=== PATIENT | male | born 1970 | race African-American/Black ===

== ENCOUNTER 2019-05-27 14:50 | Emergency (ER) | payer BC ==
[2019-05-27 14:56] VITALS: BP 145/92
--- OUTSIDE RECORDS SUMMARY | 2019-05-27 15:30 | XMS REPORT | Continuity of Care Document ---
:1970 External Reference #:[id number] Author Name Jesus Alberto Diane M.D. Address [address] [place] [address] Care Team Providers Name Role Phone Mansoor Bernal M.D. - Internal Care Team Information Bottling Supervisor Medicine Estelita Sharif MD - Internal Medicine Care Team Information Bottling Supervisor [phone] Hao Connor M.D. - Endocrinology, Care Team Information Bottling Supervisor Diabetes & Metabolism Problems Active Problems Provider Date Enlarged prostate Onset: Type 2 diabetes mellitus Onset: Essential hypertension Onset: Conjunctival pigmentation Jesus Alberto Diane M.D. Onset: 05/20/2018 Nuclear senile cataract Jesus Alberto Diane M.D. Onset: 04/21/2017 Regular astigmatism Tiffany Whipple O.D. Onset: 06/08/2015 Myopia Tiffany Whipple O.D. Onset: 06/08/2015 Presbyopia Tiffany Whipple O.D. Onset: 06/08/2015 Social History Type Date Description Comments Sex Unknown ETOH Use Denies alcohol use Tobacco Use Start: Unknown Patient has never smoked Recreational Drug Use Denies Drug Use Smoking Status Reviewed: 05/24/19 Patient has never smoked Allergies, Adverse Reactions, Alerts Active Allergies Reaction Severity Comments Date Ramipril 04/21/2017 Inactive Allergies NKDA 06/08/2015 Medications Active Medications SIG Qnty Indications Ordering Date Provider Fish Oil Tiffany Horn 600mg Capsules Tiffanie Whipple 6 Tamsulosin HCL Unknown 0.4mg Capsules 0 Vitamin D3 every day Unknown 1000Unit Tablets 0 [place] 3 1 by mouth every day Unknown 1000mg Capsules 0 Losartan Potassium Unknown 25mg Tablets 0 Omeprazole Unknown 10mg Capsules DR 0 Acidophilus Unknown Capsules 0 Iron (Ferrous Gluconate) Unknown 0 256(28Fe) mg Tablets Lovastatin Take 1 Tablet By Unknown 20mg Tablets Mouth AT Bedtime 0 Sertraline HCL Take 1 Tablet By Unknown 25mg Tablets Mouth Every Morning 0 Trulicity Inject The Contents Unknown 0.75mg/0.5ML Solution Of 1 Syringe 0 Pen-Inject Subcutaneously (Under The Skin) Once Weekly For 1 Month Hydrochlorothiazide Take 1 Tablet By Unknown 12.5mg Mouth Every Day 0 Tablets Rosuvastatin Calcium Take 1 Tablet By Unknown 20mg Mouth Every Day 0 Tablets Immunizations Description No Information Available Vital Signs Description No Information Available Results Description No Information Available Procedures Description No Information Available Medical Devices Description No Information Available Encounters Description No Information Available Assessments Date Code Description Provider 05/24/2019 E11.9 Type 2 diabetes mellitus without Jesus Alberto Diane M.D. complications 05/24/2019 H11.133 Conjunctival pigmentations, bilateral Jesus Alberto Diane M.D. 05/24/2019 H25.13 Age-related nuclear cataract, bilateral Jesus Alberto Diane M.D. Plan of Treatment 05/24/2019 - Jesus Alberto Diane M.D.E11.9 Type 2 diabetes mellitus without complicationsComments:Smoking can increase the risk of developing or worsening any eye related disease, as well as affect your overall health. If you are a smoker, we strongly recommend that you quit.If you are not a smoker, we strongly recommend that you do not start. You have diabetes. I do not detect any changes in both of your retinas from diabetes at this time. Proper control of your diabetes is important for the health of your eyes. Changes in your eyes from diabetes can happen without symptoms, so it is important that you have your eyes examined.Follow up:1 Year Follow Up DFE/DM Exam You can expect to have your eyes dilated at your next visit. If Dr. Diane orders any additional testing, it may require extra time. We recommend that you bring sunglasses, as dilation drops often make you light sensitive until they wear off. We always recommend you bring someone to drive you home if you are uncomfortable driving with your eyes dilated. If you have anyquestions before your next visit, feel free to call our office at .H11.133 Conjunctival pigmentations, bottqcivmH73.13 Age-related nuclear cataract, bilateralComments:You have been diagnosed with cataracts. If you are happy with your vision as it is now, then we willsee you at your next scheduled appointment. Functional Status Description No Information Available Mental Status Description No Information Available Referrals Description No Information Available
--- OUTSIDE RECORDS SUMMARY | 2019-05-27 15:30 | XMS REPORT | Continuity of Care Document ---
:1970 External Reference #:[id number] Author Name Saima Cochran DNP, RN, [facility] (transmitted by agent of provider Mariangel Harrsi) Address [address], [address] [place] [address] Care Team Providers Name Role Phone Tommy Pat M.D. - Hematology & Care Team Information Lathe Setup Operator Oncology Kim Juarez MD - Pulmonary Care Team Information Lathe Setup Operator Disease Estelita Sharif M.D. - Family Medicine Care Team Information Lathe Setup Operator Problems Active Problems Provider Date Type 2 diabetes mellitus Timothy Bernal M.D.,FACP Onset: 11/10/2016 Anemia Timothy Bernal M.D.,FACP Onset: 11/10/2016 Benign prostatic hypertrophy without Timothy Bernal M.D.,FACP Onset: outflow obstruction Gastroesophageal reflux disease Timothy Bernal M.D.,FACP Onset: 2016 Essential hypertension Timothy Bernal M.D.,FACP Onset: 11/10/2016 Vascular ectasia of small intestine Timothy Bernal M.D.,FACP Onset: 04/29 Note: chronic slow GI bleed Obstructive sleep apnea of adult Timothy Bernal M.D.,FACP Onset: 2017 Note: moderate Social History Type Date Description Comments Sex Unknown Tobacco Use Start: Unknown Never Smoked Cigarettes Smoking Status Reviewed: 05/03/19 Never Smoked Cigarettes ETOH Use 11/20/2016 Denies alcohol use Tobacco Use Start: Unknown Patient has never smoked Recreational Drug Use Denies Drug Use Exercise Type/Frequency Exercises sporadically Exercise Type/Frequency Bikes sporadically Exercise Type/Frequency Walks sporadically Allergies, Adverse Reactions, Alerts Active Allergies Reaction Severity Comments Date Ramipril 11/10/2016 Metformin GI distress, including ER version 11/10/2016 Byjames severe nausea 10/08/2017 Medications Active Medications SIG Qnty Indications Ordering Date Provider Lovastatin take 1 tablet at 90tabs E11.649 [facility] Rodolfo, 20mg Tablets bedtime MD Kiser Hydrochlorothiazide 1 by mouth every 90tabs I10 Any Reynolds, 12.5mg day MD Kiser Tablets Pen [place] 09/09" use one pen 30units E11.649 Estelita Sharif, 30G X 8 mm needle daily MD Kiser Misc Sertraline HCL 1 by mouth every 90tabs F41.9 Estelita Sharif, 25mg Tablets day MD Felipe Victoza inject 1.2 mg 9ml E11.9 [facility] Rodolfo, 18mg/3ML Solution daily MD Felipe Pen-Inject Mandibular Advancement fabricate oral 1units Saima Device appliance VANESSA Cochran, 8 Device /mandibular RN, [facility] HUNTER-BC advancement device for sleep apnea with needed adjustments. Moderate apnea g47.33 Losartan Potassium 1 by mouth every 90tabs I10 Estelita Sharif, 50mg Tablets day 8 Ferrous Gluconate 1 by mouth every 90tabs Estelita Sharif, 324(37.5Fe) day 8 mg Tablets Onetouch Ultra Blue test up to four 300units E11.9 Timothy Jiménez Strips times a day or Johan Bernal as directed Esmer,FACHu Omeprazole take 1 capsule 30caps K21.9 Estelita Abdallante, 20mg Capsules DR by mouth every MD 7 day Vitamin D-3 1 by mouth every Unknown 1000Unit Capsules day 0 Fish Oil 1 by mouth twice Unknown 500mg Capsules a day(pt is now 0 taking lovaza) Acidophilus Probiotic daily Unknown Tablets 0 Tamsulosin HCL 2 by mouth every Unknown 00/00/000 0.4mg Capsules day 0 Immunizations CPT Code Status Date Vaccine Reaction Lot # 65561 Given 02/18/2018 Pneumonia Vaccine no immediate reaction [id number] noted [id number] Given 02/18/2018 Influenza Virus Vaccine, no immediate reaction [id number] Quadrivalent, Split, noted Preservative Free 32396 Given 05/28/2017 Influenza Virus Vaccine, [id number] Quadrivalent, Split, Preservative Free [id number] Ordered 06/25/2012 Tetanus And Diptheria (Td) For Adult Use Preservative Free Vital Signs Date Vital Result Comment 05/03/2019 2:44pm Height 72 inches 6'0" Weight 268.00 lb Heart Rate 83 /min BP Systolic 136 mmHg BP Diastolic 78 mmHg O2 % BldC Oximetry 93 % BMI (Body Mass Index) 36.3 kg/m2 03/10/2019 3:35pm Height 72 inches 6'0" Weight 273.00 lb Heart Rate 80 /min BP Systolic Sitting 143 mmHg BP Diastolic Sitting 90 mmHg Body Temperature 98.5 F O2 % BldC Oximetry 96 % BMI (Body Mass Index) 37.0 kg/m2 Results Test Acquired Date Facility Test Result H/L Range Note Comp Metabolic 03/12/2019 [facility] Sodium 142 mmol/L Normal 135-145 Panel [address] [place] [address] [phone] Potassium 3.6 mmol/L Normal 3.5-5.0 Chloride 102 mmol/L Normal 101-111 Co2 Carbon Dioxide 33 mmol/L High 22-32 Anion Gap 7 mmol/L Normal 2-11 Glucose 176 mg/dL High 70-100 Blood Urea Nitrogen 11 mg/dL Normal 6-24 Creatinine 0.76 mg/dL Normal 0.67-1.17 BUN/Creatinine Ratio 14.5 Normal 8-20 Calcium 9.5 mg/dL Normal 8.6-10.3 Total Protein 7.6 g/dL Normal 6.4-8.9 Albumin 4.3 g/dL Normal 3.2-5.2 Globulin 3.3 g/dL Normal 2-4 Albumin/Globulin Ratio 1.3 Normal 1-3 Total Bilirubin 0.80 mg/dL Normal 0.2-1.0 Alkaline Phosphatase 134 U/L High 34-104 Alt 20 U/L Normal 7-52 Ast 17 U/L Normal 13-39 Egfr Non- 109.0 >60 Egfr 131.9 >60 1 Lipid Profile 03/12/2019 [facility] Triglycerides 145 mg/dL 2 (Trig/Chol/HDL) [address] [place] [address] [phone] Cholesterol 203 mg/dL 3 HDL Cholesterol 26.2 mg/dL 4 LDL Cholesterol 148 mg/dL 5 CBC Auto 03/12/2019 [facility] White Blood 10.7 10^3/uL Normal 3.5-10.[address] [place] [address] [phone] Red Blood Count 4.56 10^6/uL Normal 4.18-5.48 Hemoglobin 13.4 g/dL Low 14.0-18.0 Hematocrit 41 % Low 42-52 Mean Corpuscular Volume 90 fL Normal 80-94 Mean Corpuscular Hemoglobin 29 pg Normal 27-31 Mean Corpuscular HGB Conc 33 g/dL Normal 31-36 Red Cell Distribution Width 13 % Normal 10-15 Platelet Count 335 10^3/uL Normal 150-450 Mean Platelet Volume 8.6 fL Normal 7.4-10.4 Abs Neutrophils 7.5 10^3/uL Normal 1.5-7.7 Abs Lymphocytes 2.3 10^3/uL Normal 1.0-4.8 Abs Monocytes 0.7 10^3/uL Normal 0-0.8 Abs Eosinophils 0.1 10^3/uL Normal 0-0.6 Abs Basophils 0.0 10^3/uL Normal 0-0.2 Abs Nucleated RBC 0.0 10^3/uL Granulocyte % 70.1 % Lymphocyte % 21.6 % Monocyte % 6.9 % Eosinophil % 1.1 % Basophil % 0.3 % Nucleated Red Blood Cells % 0.0 Urine Microalbumin 03/10/2019 [facility] Ur Microalbumin 47.6 mg /L Random [address] (mg/L) [place] [address] [phone] Urine Creatinine 421.49 mg/dL Urine Microalbumin/Creatinine 11.2 Normal <31 Laboratory test finding 03/10/2019 [facility] In House Hemoglobin A1c 6.3 5-7 1 Because ethnic data is not always readily available, this report includes an eGFR for both -Americans and non- Americans. The National Kidney Disease Education Program (NKDEP) does not endorse the use of the MDRD equation for patients that are not between the ages of 18 and 70, are , have extremes of body size, muscle mass, or nutritional status, or are non- or non-. According to the National Kidney Foundation, irrespective of diagnosis, the stage of the disease is based on the level of kidney function: Stage Description GFR(mL/min/1.73 m(2)) 1 Kidney damage with normal or decreased GFR 90 2 Kidney damage with mild decrease in GFR 60-89 3 Moderate decrease in GFR 30-59 4 Severe decrease in GFR 15-29 5 Kidney failure <15 (or dialysis) 2 Desirable: <150 Borderline High: 150-199 High: 200-499 Very High: >500 3 Desirable: <200 Borderline High: 200-239 High: >239 4 Low: <40 Desirable: 40-60 High: >60 5 Desirable: <100 Near Optimal: 100-129 Borderline High: 130-159 High: 160-189 Very High: >189 Procedures Date Code Description Status 05/20/2018 654068742 Diabetic Retinal Eye Exam Completed 04/21/2017 [id number] Diabetic Retinal Eye Exam Completed 06/26/2016 [id number] Colonoscopy Completed Medical Devices Description No Information Available Encounters Type Date Location Provider Dx Diagnosis Office Visit 03/10/2019 [facility] Internal Any Reynolds MD E11.9 Type 2 diabetes 3:40p Medicine - Ccmob mellitus without complications I10 Essential (primary) hypertension D64.9 Anemia, unspecified H61.21 Impacted cerumen, right ear Assessments Date Code Description Provider 05/03/2019 G47.33 Obstructive sleep apnea (adult) Saima Cochran DNP, RN, (pediatric) [facility] 03/10/2019 E11.9 Type 2 diabetes mellitus without Any Reynolds MD complications 03/10/2019 I10 Essential (primary) hypertension Any Reynolds MD 03/10/2019 D64.9 Anemia, unspecified Any Reynolds MD 03/10/2019 H61.21 Impacted cerumen, right ear Any Reynolds MD Plan of Treatment Future Appointment(s):06/15/2019 3:00 pm - Saima Cochran DNP, RN, [facility] at [facility]06/09/2019 3:40 pm - Any Reynolds MD at [facility] Internal Medicine - [facility]05/03/2019 - Saima Cochran DNP, RN, [facility]- BCG47.33 Obstructive sleep apnea (adult) (pediatric)Follow up:6 weeksRecommendations:Sleep apnea to start PAP at 5-15 cm Review of sleep study in detail. Review of risks of untreated sleep apnea including cardiovascular events: rhythm irregularities, heart attack, stroke; gastro esophageal reflux disease (GERD); diabetes; anxiety, depression; high blood pressure; accidents (machinery and automobile) Recommendation for PAP other treatment modalities NON-PAP including oral appliance/mandibular advancement device, positional strategies , and surgery discussed. Referral for PAP device to be sent to [facility] phone: [phone] Equipment appointment will take about 45 minutes, the DME provider will call you within 5 days to set you up for the device. If you do not hear from them call the Sleep Center. The mask will have a 30-day guarantee, if you have mask problems call the DME provider to have a fitting for a different mask. Need distilled water for humidifier CPAP mask and tubing Cleaning Wipe off mask daily (baby wipe-no scent , or warm water) Clean mask, tubing, filter, and water chamber weekly in mild no scent dish soap and water. Hang to dry. If you have problems with the air pressure call the sleep center and speak to a nurse. If you have any further questions, please call the [facility] at [phone]. If you have any sleepiness while driving you MUST avoid operating a vehicle or machinery. Functional Status Description No Information Available Mental Status Description No Information Available Referrals Description No Information Available
--- OUTSIDE RECORDS SUMMARY | 2019-05-27 15:30 | XMS REPORT | Continuity of Care Document ---
:1970 External Reference #:[id number] Author Name Ish Connor MD (transmitted by agent of provider Ursula Chinchilla) Address [address] [place] [address] Care Team Providers Name Role Phone Tommy Pat M.D. - Hematology & Care Team Information Carbon Brush Maker [phone] Oncology Kim Juarez MD - Pulmonary Care Team Information Carbon Brush Maker Disease Estelita Sharif M.D. - Family Medicine Care Team Information Carbon Brush Maker Problems Active Problems Provider Date Type 2 [...] Unknown Never Smoked Cigarettes Smoking Status Reviewed: 05/05/19 Never Smoked Cigarettes ETOH Use 11/20/2016 Denies [...] Medications SIG Qnty Indications Ordering Date Provider Trulicity inject 0.75mg once 2ml E11.9 [facility], 05/05/19 0.75mg/0.5ML weekly for 1 month MD Bal Solution Pen-Inject Trulicity Hold On File For 2ml E11.9 Deng [facility], 05/05/19 1.5mg/0.5ML Second Month, 20 Solution Pen-Inject inject 1 dose subcutaneously once weekly Rosuvastatin Calcium take 20mg once 90tabs E11.9 Deng Coch, 05/05/19 20mg daily 20 Tablets Hydrochlorothiazide 1 by mouth every 90tabs I10 Any Rodolfo, 03/10/20 12.5mg day 19 Tablets Pen [place] 09/09" use one pen needle 30units E11.649 Estelita Sharif, 05/31/19 30G X 8 mm daily 19 Misc Sertraline HCL 1 by mouth every 90tabs F41.9 Estelita Sharif, 03/29/20 25mg Tablets day 18 Mandibular Advancement fabricate oral 1units Saima 09/26/19 Device appliance VANESSA Cochran, 18 Device /mandibular RN, TROUSSEAU CONSULTANT- advancement device for sleep apnea with needed adjustments. Moderate apnea g47.33 Losartan Potassium 1 by mouth every 90tabs I10 Estelita Sharif, 06/05/19 50mg day 18 Tablets Ferrous Gluconate 1 by mouth every 90tabs Estelita Sharif, 04/29/19 324(37.5Fe) day 18 mg Tablets Onetouch Ultra Blue test up to four 300units E11.9 Timothy Jiménez 01/03/20 Strips times a day or as Abhilash Bernal M.D.,JOHNNY Omeprazole take 1 capsule by 30caps K21.9 Estelita Kole, 11/11/[address] mouth every day 17 Vitamin D-3 1 by mouth every Unknown 1000Unit Capsules day 00 Fish Oil 1 by mouth twice a Unknown 500mg Capsules day(pt is now 00 taking lovaza) Acidophilus Probiotic daily Unknown 00 Tablets Tamsulosin HCL 2 by mouth every Unknown 0.4mg Capsules day 00 History Medications Lovastatin take 1 tablet at 90tabs E11.649 Any Reynolds MD 03/14/2019 - 20mg bedtime 05/05/2019 Tablets Immunizations CPT Code Status Date Vaccine Reaction Lot # 62318 Given 02/18/2018 Pneumonia Vaccine no immediate reaction [id number] noted 92163 Given 02/18/2018 Influenza Virus Vaccine, no immediate reaction [id number] Quadrivalent, Split, noted Preservative Free 55591 Given 05/28/2017 Influenza Virus Vaccine, [id number] Quadrivalent, Split, Preservative Free [id number] Ordered 06/25/2012 Tetanus And Diptheria (Td) For Adult Use Preservative Free Vital Signs Date Vital Result Comment 05/05/2019 2:52pm Height 72 inches 6'0" Weight 268.00 lb w/ shoes Heart Rate 74 /min BP Systolic Sitting 159 mmHg BP Diastolic Sitting 95 mmHg BMI (Body Mass Index) 36.3 kg/m2 05/03/2019 2:44pm Height 72 inches 6'0" Weight 268.00 lb Heart Rate 83 /min BP Systolic 136 mmHg BP Diastolic 78 mmHg O2 % BldC Oximetry 93 % BMI (Body Mass Index) 36.3 kg/m2 Results Test Acquired Date Facility Test Result H/L Range Note Comp Metabolic 03/12/2019 [facility] Sodium 142 mmol/L Normal 135-145 Panel [address] [place] [address] [phone] Potassium 3.6 mmol/L Normal 3.5-5.0 Chloride 102 [...] Egfr 131.9 >60 1 Lipid Profile 03/12/2019 [facility] Triglycerides 145 mg/dL 2 (Trig/Chol/HDL) [address] [place] [address] [phone] Cholesterol 203 mg/dL 3 HDL Cholesterol 26.2 mg/dL 4 LDL Cholesterol 148 mg/dL 5 CBC Auto 03/12/2019 [facility] White Blood 10.7 10^3/uL Normal 3.5-10.[address] [place] [address] [phone] Red Blood Count 4.56 10^6/uL Normal 4.18-5.48 [...] Blood Cells % 0.0 Urine Microalbumin 03/10/2019 [facility] Ur Microalbumin 47.6 mg /L Random [address] (mg/L) [place] [address] [phone] Urine Creatinine 421.49 mg/dL Urine Microalbumin/Creatinine 11.2 Normal <31 Laboratory test finding 03/10/2019 [facility] In House Hemoglobin A1c 6.3 5-7 1 [...] >189 Procedures Date Code Description Status 05/20/2018 [id number] Diabetic Retinal Eye Exam Completed 04/21/2017 [id number] Diabetic Retinal Eye Exam Completed 06/26/2016 [id number] Colonoscopy Completed Medical Devices Description No Information Available Encounters Type Date Location Provider Dx Diagnosis Office Visit 05/03/2019 [facility] Saima Cochran, G47.33 Obstructive sleep 3:00p [facility] RN, TROUSSEAU CONSULTANT-BC apnea (adult) Logging Supervisor (pediatric) Office Visit 03/10/2019 [facility] Internal Any Reynolds MD E11.9 Type 2 diabetes 3:40p Medicine - Ccmob mellitus without complications I10 Essential (primary) hypertension D64.9 Anemia, unspecified H61.21 Impacted cerumen, right ear Assessments Date Code Description Provider 05/05/2019 E11.9 Type 2 diabetes mellitus without Ish Connor MD complications 05/05/2019 G47.33 Obstructive sleep apnea (adult) Ish Connor MD (pediatric) 05/03/2019 G47.33 Obstructive sleep apnea (adult) Saima Cochran DNP, RN, (pediatric) TROUSSEAU CONSULTANT-BC 03/10/2019 E11.9 Type 2 diabetes mellitus without Any Reynolds MD complications 03/10/2019 I10 Essential (primary) hypertension Any Reynolds MD 03/10/2019 D64.9 Anemia, unspecified Any Reynolds MD 03/10/2019 H61.21 Impacted cerumen, right ear Any Reynolds MD Plan of Treatment Future Appointment(s):08/11/2019 2:40 pm - Ish Connor MD at [facility]06/15/2019 3:00 pm - Saima Cochran DNP, RN, [facility]- at [facility]06/09/2019 3:40 pm - Any Reynolds MD at [facility] Internal Medicine - [facility]05/05/2019 - Ish Connor MDE11.9 Type 2 diabetes mellitus without complicationsNew Medication:Trulicity 0.75 mg/0.5ML - inject 0.75mg once weekly for 1 monthTrulicity 1.5 mg/0.5ML - Hold On File For Second Month, inject 1 dose subcutaneously once weeklyRosuvastatin Calcium 20 mg - take 20mg once dailyInstructions:1. Start Trulicity 0.75mg once weekly. 2. Increase Trulicity to 1.5mg weekly after 1 month. 3. Checkmorning blood glucose after 1 month. 4. Contact us in 6-8 weeks if your morning blood glucose is more than 160mg/dL. 5. Stop lovastatin. 6. Start rosuvastatin 20mg once daily for cholesterol. 7. Check fasting blood tests and a follow-up visit in 3 months.G47.33 Obstructive sleep apnea (adult) (pediatric) Functional Status Description No Information Available Mental Status Description No Information Available Referrals Description No Information Available
== END 2019-05-27 16:35 | disposition left against medical advice (07) ==
LOC: ED 14:50
DX: R73.9 Hyperglycemia, unspecified (principal); Z53.21 Procedure and treatment not carried out due to patient leaving prior to being seen by health care provider
CPT/HCPCS: 99281

== ENCOUNTER 2020-01-04 08:31 | Observation (INO) ==
[2020-01-04] MEDS ORDERED: Adenosine 3 MG/ML 2 ml VIAL (6 mg) ONE (08:37)
[2020-01-04] MEDS ORDERED: NS 0.9% 1000 ml BAG 1,000 ML IV ONE (08:39)
[2020-01-04] MEDS ORDERED: Adenosine 3 MG/ML 2 ml VIAL (6 mg) IV PUSH ONE (08:39)
[2020-01-04 08:48] LABS: ABS Basophils 0.1 10^3/ul (0-0.2); ABS Eosinophils 0.1 10^3/ul (0-0.6); ABS Lymphocytes 3.4 10^3/ul (1.0-4.8); ABS Monocytes 0.9 10^3/ul (0-0.8); ABS Neutrophils 10.6 10^3/ul (1.5-7.7); Eosinophil % 0.4 %; Hematocrit 38 % (42-52); Hemoglobin 12.3 g/dL (14.0-18.0); Lymphocyte % 22.6 %; Mean Corpuscular HGB Conc 33 g/dL (31-36); Mean Corpuscular Hemoglobin 29 pg (27-31); Mean Corpuscular Volume 89 fL (80-94); Mean Platelet Volume 8.8 fL (7.4-10.4); Platelet Count 347 10^3/uL (150-450); Red Blood Count 4.26 10^6 /uL (4.18-5.48); Red Cell Distribution Width 13 % (10-15); White Blood Count 15.1 10^3/uL (3.5-10.8)
[2020-01-04 08:59] LABS: ALT 22 U/L (7-52); AST 19 U/L (13-39); Albumin 4.3 g/dL (3.2-5.2); Albumin/Globulin Ratio 1.3 (1-3); Alkaline Phosphatase 94 U/L (34-104); Anion Gap 7 mmol/L (2-11); BUN/Creatinine Ratio 21.2 (8-20); Blood Urea Nitrogen 18 mg/dL (6-24); C Reactive Protein 10.22 mg/L (<8.01); CO2 Carbon Dioxide 31 mmol/L (22-32); Calcium 9.4 mg/dL (8.6-10.3); Chloride 102 mmol/L (101-111); EGFR African American 115.4 (>60); EGFR Non-African American 95.4 (>60); Globulin 3.4 g/dL (2-4); Glucose 222 mg/dL (70-100); Potassium 3.4 mmol/L (3.5-5.0); Sodium 140 mmol/L (135-145); Total Protein 7.7 g/dL (6.4-8.9)
[2020-01-04 09:04] LABS: Troponin I 0.06 ng/mL (<0.03)
[2020-01-04 10:42] LABS: Magnesium 1.7 mg/dL (1.9-2.7)
[2020-01-04] MEDS ORDERED: Potassium Chlor 20 meq TAB.ER PO ONE (10:48)
[2020-01-04] MEDS ORDERED: Magnesium Sulfate 2 gm BAG 2 GM/50 ML BAG IVPB ONE (10:48)
[2020-01-04] MEDS ORDERED: Dextrose 50% Syringe 50 ml 25 GM/50 ML SYRINGE IV PUSH PRN (10:50)
[2020-01-04 11:00] LABS: TSH Ultra Thyroid Stim Horm 1.73 mcIU/mL (0.34-5.60)
[2020-01-04 12:04] LABS: Troponin I 0.08 ng/mL (<0.03)
[2020-01-04 12:23] LABS: Urine Appearance Clear; Urine Bilirubin Negative (Negative); Urine Blood 1+ (Negative); Urine Color Yellow; Urine Glucose Negative (Negative); Urine Ketones Negative (Negative); Urine Nitrite Negative (Negative); Urine Protein Negative (Negative); Urine Specific Gravity 1.024 (1.010-1.030); Urine Urobilinogen Negative (Negative)
[2020-01-04 12:25] LABS: Urine Bacteria Absent (Absent); Urine Red Blood Cell 1+(3-5/hpf) (Absent); Urine White Blood Cell Trace(0-5/hpf) (Absent)
[2020-01-04] MEDS: Heparin 5000 UNITS/ML 1 mL VIAL SUBCUT SCH ×2 (13:28→21:04)
[2020-01-04] MEDS ORDERED: Perflutren Lipid Microsphere 3 ML VIAL ONE (13:41)
[2020-01-04 15:18] LABS: Troponin I 0.09 ng/mL (<0.03)
[2020-01-04 17:51] LABS: Troponin I 0.09 ng/mL (<0.03)
[2020-01-04] MEDS ORDERED: CMC: Rosuvastatin 10 mg TAB (NF) PO SCH (18:00)
[2020-01-05] MEDS: Heparin 5000 UNITS/ML 1 mL VIAL SUBCUT SCH (06:10)
[2020-01-05 06:16] LABS: ABS Eosinophils 0.1 10^3/ul (0-0.6); ABS Lymphocytes 2.4 10^3/ul (1.0-4.8); ABS Monocytes 0.6 10^3/ul (0-0.8); ABS Neutrophils 7.5 10^3/ul (1.5-7.7); Eosinophil % 0.8 %; Hematocrit 34 % (42-52); Hemoglobin 11.4 g/dL (14.0-18.0); Lymphocyte % 22.5 %; Mean Corpuscular HGB Conc 33 g/dL (31-36); Mean Corpuscular Hemoglobin 30 pg (27-31); Mean Corpuscular Volume 90 fL (80-94); Mean Platelet Volume 8.4 fL (7.4-10.4); Platelet Count 303 10^3/uL (150-450); Red Blood Count 3.83 10^6 /uL (4.18-5.48); Red Cell Distribution Width 13 % (10-15); White Blood Count 10.6 10^3/uL (3.5-10.8)
[2020-01-05 06:39] LABS: BUN/Creatinine Ratio 17.5 (8-20); Calcium 8.7 mg/dL (8.6-10.3); EGFR African American 163.1 (>60); EGFR Non-African American 134.8 (>60); Magnesium 1.9 mg/dL (1.9-2.7); Potassium 3.3 mmol/L (3.5-5.0)
[2020-01-05] MEDS ORDERED: Regadenoson 0.4 MG/5 ML SYRINGE ONE (08:24)
[2020-01-05] MEDS ORDERED: Aminophylline 25 MG/ML VIAL ONE (08:24)
[2020-01-05] MEDS ORDERED: Influenza VAC *QUAD* 2020-21* 0.5 ML SYRINGE IM ONE (09:00)
[2020-01-05] MEDS ORDERED: Potassium Chlor 20 meq TAB.ER PO ONE (09:42)
[2020-01-05] MEDS ORDERED: Aspirin EC 81 mg TAB.EC (enteric coated) PO SCH (11:00)
[2020-01-05 11:25] VITALS: BP 140/85
== END 2020-01-05 13:00 | disposition home or self-care (01) ==
LOC: ED 08:31 → MEDTELE 08:31
PROVIDERS: ADMIT Registered Nurse; ATTEND Internal Medicine